=== PATIENT | female | born 1990 | race African-American/Black ===

== ENCOUNTER 2024-01-27 18:06 | Emergency (ER) | payer OTHER ==
[2024-01-27 18:54] LABS: #Basophils 0.04 10x3/uL (0.0-0.2); #Eosinophils 0.12 10x3/uL (0.0-0.5); #Monocytes 0.24 10x3/uL (0.0-1.1); #Neutrophils 2.63 10x3/uL (1.5-8.4); %Basophils 0.7 % (0.0-2.0); %Eosinophils 2.1 % (0.0-6.0); %Lymphocytes 46.9 % (18.0-47.0); %Monocytes 4.2 % (0.0-10.0); %Neutrophils 45.9 % (40.0-75.0); Hematocrit 35.5 % (34.9-44.5); Hemoglobin 11.9 g/dL (12.0-15.5); Mean Corpuscular HGB CONC 33.5 g/dL (32.0-36.0); Mean Corpuscular Hemoglobin 32.8 pg (27.0-33.0); Mean Corpuscular Volume 97.8 fL (81.6-98.3); Mean Platelet Volume 8.8 fL (7.4-10.4); Platelet Count 287 10x3/uL (150-450); RBC Distribution Width 13.6 % (11.5-14.5); Red Blood Cell (RBC) Count 3.63 10x6/uL (3.90-5.03); White Blood Cell (WBC) Count 5.7 10x3/uL (3.5-10.5)
[2024-01-27 19:03] LABS: BHCG - Serum Negative (NEGATIVE); Pregs Control Background? CLEAR/WHITE (CLR/WHITE); Pregs Control Bar Appear? YES (CONTROL BAR)
[2024-01-27 19:10] LABS: ALT (SGPT) 52 U/L (8-55); AST (SGOT) 129 U/L (5-34); Albumin 2.8 g/dL (3.5-5.0); Alkaline Phosphatase 104 U/L (40-110); Anion Gap 13 mmol/L (10-20); BUN (Urea Nitrogen) 6 mg/dL (7.0-18.7); Calc. Creatinine Clearance 0 mL/min (70-130); Calcium 8.4 mg/dL (7.8-10.44); Carbon Dioxide 30 mmol/L (22-29); Chloride 106 mmol/L (98-107); Estimated GFR 118; Globulin 4.8 g/dL (2.4-3.5); Glucose 105 mg/dL (70-105); Potassium 3.3 mmol/L (3.5-5.1); Protein, Total 7.6 g/dL (6.0-8.3); Sodium 146 mmol/L (136-145)
[2024-01-27 19:11] LABS: Acetaminophen Less than 10 mcg/mL (Less than 10); Alcohol 357.4 mg/dL (Less than 10); Lipase 102 U/L (8-78); Salicylate Less than 8.0 mg/dL (Less than 8.0)
[2024-01-27 21:59] LABS: Acetaminophen Less than 10 mcg/mL (Less than 10); Alcohol 295.8 mg/dL (Less than 10); Salicylate Less than 8.0 mg/dL (Less than 8.0)
== END 2024-01-28 02:53 | disposition home or self-care (01) ==
LOC: CSHERS 18:06
DX: F10.129 Alcohol abuse with intoxication, unspecified (principal); I10 Essential (primary) hypertension; F17.210 Nicotine dependence, cigarettes, uncomplicated
CPT/HCPCS: 36415; 80053; 80307; 83690; 84703; 85025; 99284

== ENCOUNTER 2024-02-10 11:37 | Emergency (ER) | payer OTHER ==
[2024-02-10] MEDS ORDERED: Ibuprofen 200 MG TAB ONE (12:52)
== END 2024-02-10 13:05 | disposition home or self-care (01) ==
LOC: CSHERS 11:37
DX: S92.514A Nondisplaced fracture of proximal phalanx of right lesser toe(s), initial encounter for closed fracture (principal); I10 Essential (primary) hypertension; F17.210 Nicotine dependence, cigarettes, uncomplicated; W20.8XXA Other cause of strike by thrown, projected or falling object, initial encounter
CPT/HCPCS: 99283